=== PATIENT | female | born 2000 | race Caucasian/White ===

== ENCOUNTER 2022-11-07 04:48 | Emergency (ER) | payer BC, SELFPAY ==
[2022-11-07 04:54] VITALS: BP 109/78; PULSE 74; RESP 16; TEMP 36.4; O2SAT 99
--- NOTE | 2022-11-07 05:00 | ED.GENADULT ---
HPI - General Adult General Chief complaint: Unspecified Stated complaint: throat pain/swelling Time Seen by Provider: 11/07/22 04:54 History of Present Illness HPI narrative: This is a 21-year-old female with prior history of IV drug use, who presents to the emergency department complaining of 2 days worth of sore throat. She states the pain is described as sharp and intermittently sharp, rated 5/10 at baseline with intermittent spikes to 10. It is worse on the left than the right. She denies associated cough, fevers or upper respiratory congestion. Related Data Allergies Allergy/AdvReac Type Severity Reaction Status Date / Time No Known Allergies Allergy Verified 11/07/22 04:56 Review of Systems Review of Systems: CONSTITUTIONAL: Denies fever, chills, or sweats. EYES: Denies visual changes, redness, or discharge. ENT: Sore throat denies rhinorrhea, congestion, or otalgia. CARDIOVASCULAR: Denies chest pain, palpitations, or edema. RESPIRATORY: Denies cough or dyspnea. GASTROINTESTINAL: Denies abdominal pain, nausea, vomiting, or diarrhea. GENITOURINARY: Denies dysuria or hematuria. SKIN: Denies rash or itching. MUSCULOSKELETAL: Denies back pain, joint pain, or myalgia. NEUROLOGIC: Headache denies, numbness, dizziness, or weakness. PSYCHIATRIC: Denies anxiety or depression. PMFSH Past Medical History Medical History History of intravenous drug use in remission Surgical History Surgical History No significant past surgical history Social History Social History (Updated 11/07/22 @ 05:01 by Bonifacio Lozano MD) Smoking status: Current every day smoker Tobacco type: e-cigarettes/vaping Alcohol intake: never Substance use: former Exam Narrative: GENERAL: Well-developed, well-nourished, and in no acute distress. HEAD: Normocephalic, atraumatic. EYES: PERRLA and EOMI. ENT: Nares clear, no rhinorrhea or epistaxis. Mucous membranes moist. Oropharynx bilateral tonsillar hypertrophy, greater on the left than the right with mild exudate. No other lesions noted. NECK: Supple. Tender left anterior cervical lymphadenopathy. No masses. CHEST: Clear to auscultation. No respiratory distress. No wheezes rales or rhonchi HEART: Regular rate and rhythm. No murmur heard. Normal peripheral pulses. ABDOMEN: Soft, nontender, nondistended, normal active bowel sounds. NEURO: No focal deficits. Alert and oriented x3. PSYCH: Normal mood and affect. Course Course Emergency Course: 05:40 - Rapid strep negative. On reevaluation, the patient states her throat pain is only slightly improved. She also complains of left upper facial swelling and tooth pain. On exam, tooth #15 appears to have a large cavity with surrounding erythema and swelling, consistent with dental abscess. Will discharge with antibiotics, pain medications and recommendation for dental follow-up. Discussed return and emergency precautions including signs/symptoms of airway compromise and respiratory distress. The patient voiced understanding and is comfortable with the plan. All questions answered to her satisfaction. Vital Signs Vital signs: Vital Signs Temperature 97.5 F L 11/07/22 04:54 Pulse Rate 74 11/07/22 04:54 Respiratory Rate 16 11/07/22 04:54 Blood Pressure 109/78 11/07/22 04:54 Pulse Oximetry 99 11/07/22 04:54 Oxygen Delivery Room Air 11/07/22 04:54 Temperature 97.5 F L 11/07/22 04:54 Pulse Rate 74 11/07/22 04:54 Respiratory Rate 16 11/07/22 04:54 Blood Pressure 109/78 11/07/22 04:54 Pulse Oximetry 99 11/07/22 04:54 Oxygen Delivery Room Air 11/07/22 04:54 Medical Decision Making MDM Narrative Medical decision making narrative: Plan: Pain control, labs, oral steroids, reassess Differential Diagnosis Differential Diagnosis: Strep pharyngitis, viral pharyngitis, viral URI, other Vital Signs Vital Signs: Vital Sign
[2022-11-07] MEDS: ACETAMINOPHEN 500 MG TABLET 1000 MG PO (05:04)
[2022-11-07 05:35] LABS: Strep Group A RT-PCR NOT DETECTED (Negative)
[2022-11-07] MEDS: LIDOCAINE HCL 2% VISC SOLN 15 ML UDC PO (05:49)
== END 2022-11-07 05:53 | disposition home or self-care (01) ==
PROVIDERS: Emergency Provider Preventive Medicine Aerospace Medicine
DX: J02.9 Acute pharyngitis, unspecified (principal); K04.7 Periapical abscess without sinus; F17.290 Nicotine dependence, other tobacco product, uncomplicated
CPT/HCPCS: 87651; 99283; A9270; J8540

== ENCOUNTER 2022-11-08 13:58 | Emergency (ER) | payer BC, SELFPAY ==
[2022-11-08 14:00] VITALS: BP 128/77; PULSE 79; RESP 18; TEMP 36.4; O2SAT 100
[2022-11-08] MEDS: LIDOCAINE HCL 2% VISC SOLN 15 ML UDC PO (14:50)
[2022-11-08] MEDS: HYDROcodone/acetaminophen (*CRX) 5-325 MG TABLET 1 TAB PO (14:51)
--- NOTE | 2022-11-08 14:57 | ED.GENADULT ---
HPI - General Adult General Chief complaint: Dental/Oral Stated complaint: infection in my gums Time Seen by Provider: 11/08/22 14:14 History of Present Illness HPI narrative: Lisset Prajapati is a 21 y/o female who presents today with reports of an ongoing toothache. She reports her pain is to her left upper and her left lower area. Denies any fever/chills. She states she was here yesterday and was started on antibiotics and has been taking them but she feels like the pain has become worse today. Related Data Allergies Allergy/AdvReac Type Severity Reaction Status Date / Time No Known Allergies Allergy Verified 11/08/22 14:04 Review of Systems Review of Systems: CONSTITUTIONAL: Denies fever, chills, or sweats. EYES: Denies visual changes, redness, or discharge. ENT: Denies rhinorrhea, congestion, sore throat, Complains of left upper and lower toothache. CARDIOVASCULAR: Denies chest pain, palpitations, or edema. RESPIRATORY: Denies cough or dyspnea. GASTROINTESTINAL: Denies abdominal pain, nausea, vomiting, or diarrhea. GENITOURINARY: Denies dysuria or hematuria. SKIN: Denies rash or itching. MUSCULOSKELETAL: Denies back pain, joint pain, or myalgia. NEUROLOGIC: Denies headache, numbness, dizziness, or weakness. PSYCHIATRIC: Denies anxiety or depression. PMFSH Past Medical History Medical History History of intravenous drug use in remission Surgical History Surgical History No significant past surgical history Social History Social History Smoking status: Current every day smoker Tobacco type: e-cigarettes/vaping Alcohol intake: never Substance use: former Exam Narrative: GENERAL: Well-appearing, well-nourished, and in no acute distress. HEAD: Normocephalic, atraumatic. EYES: PERRLA and EOMI. ENT: Nares clear, no rhinorrhea or epistaxis. Mucous membranes moist. Oropharynx without tonsillar hypertrophy exudate or other lesions. Notable dental decay to the left upper back molars and the left lower back molar. NECK: Supple. No adenopathy or masses. No carotid bruits or JVD CHEST: Clear to auscultation. No respiratory distress. No wheezes rales or rhonchi HEART: Regular rate and rhythm. No murmur heard. Normal peripheral pulses. ABDOMEN: Soft, nontender, nondistended, normal active bowel sounds. EXTREMITIES: Normal range of motion. No edema. SKIN: Warm, dry, no rash. NEURO: No focal deficits. Alert and oriented x3. PSYCH: Normal mood and affect. Course Vital Signs Vital signs: Vital Signs Temperature 36.4 C L 11/08/22 14:00 Pulse Rate 79 11/08/22 14:00 Respiratory Rate 18 11/08/22 14:00 Blood Pressure 128/77 11/08/22 14:00 Pulse Oximetry 100 11/08/22 14:00 Oxygen Delivery Room Air 11/08/22 14:00 Temperature 36.4 C L 11/08/22 14:00 Pulse Rate 79 11/08/22 14:00 Respiratory Rate 18 11/08/22 14:00 Blood Pressure 128/77 11/08/22 14:00 Pulse Oximetry 100 11/08/22 14:00 Oxygen Delivery Room Air 11/08/22 14:00 Medical Decision Making MDM Narrative Medical decision making narrative: Notable dental decay to the left upper back molars and the left lower back molar No palpable fluctuance noted to appreciate an abscess to the gum line. No facial swelling Airway intact No difficulty swallowing No nausea/vomiting /fever/chills. Plan to treat her pain today, continue her current antibiotic regimen and will d/c her home with Naproxen BID Discussed plan with pt and she verbalizes agreement, all questions answered. Differential Diagnosis Differential Diagnosis: Dental infection/ dental abscess/ tooth decay/ sepsis Vital Signs Vital Signs: Vital Signs Temperature 36.4 C L 11/08/22 14:00 Pulse Rate 79 11/08/22 14:00 Respiratory Rate 18 11/08/22 14:00 Blood Pressure 128/77 11/08/22 14:00 Pulse Oximetry 100 11/08/22
== END 2022-11-08 15:36 | disposition home or self-care (01) ==
PROVIDERS: Emergency Provider Nurse Practitioner Family
DX: K08.89 Other specified disorders of teeth and supporting structures (principal); K02.9 Dental caries, unspecified
CPT/HCPCS: 99283; A9270